=== PATIENT | female | born 1945 | race Caucasian/White ===

== ENCOUNTER 2017-01-09 16:28 | Emergency (ER) | payer OTHER ==
[~2017-01-09] VITALS: Ht 167.6 cm; Wt 57.5 kg
[~2017-01-09 16:28] MED LIST: AMLO5TAB96 PO; ASPI-94 PO; ATOR20TA42 PO; FLUO40CA PO; GABA100C4 PO; HYDR-3580 PO; NITR.4 SL; OMEP20TA OR; OXYB5TAB PO; TRAZ100 PO
[2017-01-09 16:34] VITALS: BP 115/65; PULSE 73; RESP 18; TEMP 98.2; O2SAT 96
[2017-01-09] MEDS ORDERED: TRAZ100T4 PO (16:48)
[2017-01-09] MEDS ORDERED: ASPI81TA11 PO (16:48)
[2017-01-09] MEDS ORDERED: AMLO5TAB2 PO (16:48)
[2017-01-09] MEDS ORDERED: GABA300C5 PO (16:48)
[2017-01-09] MEDS ORDERED: RANI300T PO (16:48)
[2017-01-09] MEDS ORDERED: CLON0.5T PO (16:48)
[2017-01-09] MEDS ORDERED: OXYB5TAB10 PO (16:48)
[2017-01-09] MEDS ORDERED: ATOR20TA15 PO (16:48)
[2017-01-09 16:56] VITALS: O2SAT 96
[2017-01-09] MEDS ORDERED: HYDROmorphone HCL PF 1 MG/ML VIAL IV PUSH ONE (17:00)
[2017-01-09] MEDS ORDERED: SODIUM CHLORIDE 0.9% FLUSH 5 ML FLUSH IVF PRN (17:00)
--- NOTE | 2017-01-09 17:01 | PD ---
HPI Chief Complaint: Pain: Acute or Chronic Time Seen by Provider: 16:49 Travel History International Travel<30 days: No Contact w/Intl Traveler<30days: No Traveled to known affect area: No History of Present Illness HPI 71-year-old female with history of hypertension, hyperlipidemia, fibromyalgia, chronic pain, here for evaluation of left chest wall pain. The patient reports that she has breast implants. She states that she was leaning over her couch yesterday evening when she felt a pop. Since that time she has been having persistent pain in her left chest wall. Pain is sharp, constant, moderate to severe, worse with movement and palpation. She denies dyspnea. No hemoptysis. No history of cardiac disease. She has chronic pain and took 2 of her hydrocodone pills at home today without any relief of symptoms. She is concerned about her breast implants which were placed 30 years ago and have since calcified. PFSH Past Medical History Arthritis: Yes Asthma: No Autoimmune Disease: No Blood Disorders: No Anxiety: Yes Depression: Yes Heart Rhythm Problems: No Cancer: No Cardiovascular Problems: Yes (STATES SHE HAD PREVIOUS ADMISSIONS FOR "HEART") High Cholesterol: Yes Chemotherapy: No Chest Pain: Yes Congestive Heart Failure: No COPD: No Cerebrovascular Accident: No Diabetes: No Diminished Hearing: No Fibromyalgia: Yes Gastrointestinal Disorders: No GERD: Yes Glaucoma: No Headaches: Yes Hepatitis: No Hiatal Hernia: No Hypertension: Yes Kidney Stones: No Musculoskeletal: No Neurologic: No Psychiatric: No Reproductive: No Respiratory: No Immunizations Current: Yes Myocardial Infarction: No Radiation Therapy: No Renal Failure: No Seizures: No Sleep Apnea: No Thyroid Disease: No Ulcer: No Tetanus Vaccination: > 5 Years Influenza Vaccination: Yes PNEUMOCCOCAL Vaccine (Year): NONE ?: Not Menopausal: Yes Past Surgical History AICD: No Gynecologic Surgery: Yes (CERVICAL REPAIR) Pacemaker: No 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)) Social History Alcohol Use: No Tobacco Use: No Substance Use: No Allergies-Medications (Allergen,Severity, Reaction): Coded Allergies: No Known Allergies (Verified , 01/09/17) Reported Meds & Prescriptions Reported Meds & Active Scripts Active Reported Atorvastatin (Atorvastatin Calcium) 20 Mg Tab 20 Mg PO HS Ranitidine (Ranitidine HCl) 300 Mg Tab 300 Mg PO HS Ditropan (Oxybutynin Chloride) 5 Mg Tab 5 Mg PO Q12HR Amlodipine (Amlodipine Besylate) 5 Mg Tab 5 Mg PO DAILY Clonazepam 0.5 Mg Tab 0.5 Mg PO BID Gabapentin 300 Mg Cap 300 Mg PO TID Trazodone (Trazodone HCl) 100 Mg Tab 100 Mg PO HS Review of Systems Except as stated in HPI: all other systems reviewed are Neg Physical Exam Narrative GENERAL: Well-developed, well-nourished, comfortable, no acute distress. SKIN: Warm and dry. No rash. No lacerations, abrasions, or ecchymosis. HEAD: Atraumatic. Normocephalic. EYES: Pupils equal and round. No scleral icterus. No injection or drainage. ENT: Mucous membranes pink and moist. NECK: Trachea midline. No JVD. CARDIOVASCULAR: Regular rate and rhythm. RESPIRATORY: No accessory muscle use. Clear to auscultation. Breath sounds equal bilaterally. GASTROINTESTINAL: Abdomen soft, non-tender, nondistended. MUSCULOSKELETAL: No obvious deformities. No clubbing. No cyanosis. No edema. Left anterior chest wall inferior to the breast there is point tenderness over the fifth and sixth ribs without step-off, without crepitus, without paradoxical chest wall movement. NEUROLOGICAL: Awake and alert. No obvious cranial nerve deficits. Motor grossly within normal limits. Normal speech. PSYCHIATRIC: Appropriate mood and affect; insight and judgment normal. Data Data Last Documented VS Vital Signs Date Time Temp Pulse Resp B/P Pulse Ox O2 Delivery O2 Flow Rate FiO2 01/09/17 16:56 96 Room Air 01/09/17 16:34 98.2 73 18 115/65 Orders Basic Metabolic Panel (Bmp) (01/09/17 16:54) Ckmb (Isoenzyme) Profile (01/09/17 16:54) Complete Blood Count With Diff (01/09/17 16:54) Prothrombin Time / Inr (Pt) (01/09/17 16:54) Act Partial Throm Time (Ptt) (01/09/17 16:54) Troponin I (01/09/17 16:54) Chest, Single Ap (01/09/17 16:54) Ecg Monitoring (01/09/17 16:54) Iv Access Insert/Monitor (01/09/17 16:54) Oximetry (01/09/17 16:54) Sodium Chloride 0.9% Flush (Ns Flush) (01/09/17 17:00) Ct Pulmonary Angiogram (01/09/17 16:54) Hydromorphone Pf Inj (Dilaudid Pf Inj) (01/09/17 17:00) Alcohol (Ethanol) (01/09/17 16:54) Electrocardiogram (01/09/17 16:54) Iohexol 350 Inj (Omnipaque 350 Inj) (01/09/17 18:33) Labs Laboratory Tests Test 01/09/17 17:10 White Blood Count 5.3 TH/MM3 Red Blood Count 3.82 MIL/MM3 Hemoglobin 11.9 GM/DL Hematocrit 36.3 % Mean Corpuscular Volume 94.9 FL Mean Corpuscular Hemoglobin 31.1 PG Mean Corpuscular Hemoglobin 32.7 % Concent Red Cell Distribution Width 12.9 % Platelet Count 174 TH/MM3 Mean Platelet Volume 8.7 FL Neutrophils (%) (Auto) 63.3 % Lymphocytes (%) (Auto) 24.7 % Monocytes (%) (Auto) 9.9 % Eosinophils (%) (Auto) 1.7 % Basophils (%) (Auto) 0.4 % Neutrophils # (Auto) 3.4 TH/MM3 Lymphocytes # (Auto) 1.3 TH/MM3 Monocytes # (Auto) 0.5 TH/MM3 Eosinophils # (Auto) 0.1 TH/MM3 Basophils # (Auto) 0.0 TH/MM3 CBC Comment DIFF FINAL Differential Comment Prothrombin Time 10.7 SEC Prothromb Time International 1.0 RATIO Ratio Activated Partial 26.1 SEC Thromboplast Time Sodium Level 141 MEQ/L Potassium Level 3.7 MEQ/L Chloride Level 107 MEQ/L Carbon Dioxide Level 27.4 MEQ/L Anion Gap 7 MEQ/L Blood Urea Nitrogen 14 MG/DL Creatinine 0.89 MG/DL Estimat Glomerular Filtration 63 ML/MIN Rate Random Glucose 90 MG/DL Calcium Level 8.1 MG/DL Total Creatine Kinase 70 U/L Troponin I LESS THAN 0.02 NG/ML Ethyl Alcohol Level LESS THAN 3 MG/DL MDM Medical Decision Making Medical Screen Exam Complete: Yes Emergency Medical Condition: Yes Medical Record Reviewed: Yes Interpretation(s) EKG: Sinus, rate 56, normal axis, normal intervals, no acute ischemic abnormality, unchanged from prior. Differential Diagnosis Chest wall pain, rib fracture, musculoskeletal strain, pneumothorax, PE, ACS, pericarditis, pneumonia, hemothorax Narrative Course Vital signs show heart rate 73, blood pressure 115/65, pulse ox 96% on room air , oral temp 98.2F. CBC is unremarkable. BMP is unremarkable. Cardiac enzymes are negative. Chest x-ray shows no acute disease. CT pulmonary angiogram: CONCLUSION: 1. Patchy left basilar airspace disease. 2. No evidence for pulmonary embolism. 3. Mild emphysema. The patient has had significant relief with Dilaudid. She still left anterior chest pain that is sharp with movement and deep inspiration. I do not believe the patchy left basilar airspace disease seen on CT scan is indicative of a pneumonia. The patient is afebrile. She has a normal WBC count. She does not have a productive cough. I believe that this is an area of atelectasis secondary to her chest wall pain that she has been experiencing. I did offer to admit the patient for further cardiac evaluation, however the patient does not wish to be admitted at this time. She was admitted to the chest pain center in August 2016, had 3 sets of negative cardiac enzymes, and refused stress testing. Patient's pain is very musculoskeletal. I think that it is very unlikely to be cardiac in nature. I will discharge her home with an incentive spirometer and muscle relaxant. She has pain medication at home. PMD follow-up this week. She was informed on when to return to the emergency department. She verbalizes understanding and agreement with plan. Diagnosis Primary Impression: Chest wall pain Referrals: Primary Care Physician 3 days Additional Instructions: Follow-up with your primary care physician this week. Return to the emergency department for worsening symptoms or any other concerns. Scripts Cyclobenzaprine (Flexeril)10 Mg Tab10 Mg PO TID #20 TAB Ref 0 Prov:Eric Blair MD 01/09/17 Disposition: 01 DISCHARGE HOME Condition: Stable Eric Blair MD Jan 09, 2017 17:01
[2017-01-09 17:20] LABS: AUTOMATED NEUTROPHIL # 3.4 TH/MM3 (1.8-7.7); BASOPHIL % 0.4 % (0.0-2.0); EOSINOPHIL # 0.1 TH/MM3 (0-0.4); EOSINOPHIL % 1.7 % (0.0-4.0); HEMATOCRIT 36.3 % (35.0-46.0); HEMO FLAGS DIFF FINAL; LYMPH % 24.7 % (9.0-44.0); LYMPHOCYTE # 1.3 TH/MM3 (1.0-4.8); MEAN CELL VOLUME 94.9 FL (80.0-100.0); MEAN CORPUSCULAR HEMOGLOBIN 31.1 PG (27.0-34.0); MEAN CORPUSCULAR HGB CONC 32.7 % (32.0-36.0); MONO % 9.9 % (0.0-8.0); NEUT % 63.3 % (16.0-70.0); PLATELET COUNT 174 TH/MM3 (150-450); RED BLOOD COUNT 3.82 MIL/MM3 (4.00-5.30); RED CELL DISTRIBUTION WIDTH 12.9 % (11.6-17.2); WHITE BLOOD COUNT 5.3 TH/MM3 (4.0-11.0)
--- NOTE | 2017-01-09 17:20 | RADHPO ---
EXAM DATE/TIME: 01/09/2017 17:12 [facility] COMPARISON: CHEST SINGLE AP, August 16, 2016, 23:47. INDICATIONS : Left side chest pain after cleaning MEDICAL HISTORY : None. SURGICAL HISTORY : None. ENCOUNTER: Initial ACUITY: 2 days PAIN SCORE: 6/10 LOCATION: Left chest FINDINGS: Calcified breast implants. Cardiomegaly. Aortic calcification. Clear lungs. Osseous structures are in tact. CONCLUSION: No acute disease. Thong Melgoza MD on January 09, 2017 at 17:18 Board Certified Radiologist. This report was verified electronically.
[2017-01-09 17:26] LABS: CHLORIDE 107 MEQ/L (98-107); POTASSIUM 3.7 MEQ/L (3.5-5.1); SODIUM (NA) 141 MEQ/L (136-145)
[2017-01-09 17:29] LABS: ANION GAP 7 MEQ/L (5-15); BICARBONATE 27.4 MEQ/L (21.0-32.0)
[2017-01-09 17:30] LABS: APTT (PATIENT) 26.1 SEC (24.3-30.1); BLOOD UREA NITROGEN 14 MG/DL (7-18); PROTHROMBIN TIME - PATIENT 10.7 SEC (9.8-11.6)
[2017-01-09 17:33] LABS: GLOMERULAR FILTRATION RATE 63 ML/MIN (>89)
[2017-01-09 17:50] LABS: CREATINE KINASE 70 U/L (26-192)
[2017-01-09] MEDS ORDERED: IOHEXOL 350 MG/ML 10 ML VIAL (for RAD DIAG) IV ONE (18:33)
--- NOTE | 2017-01-09 18:39 | RADHPO ---
EXAM DATE/TIME: 01/09/2017 18:07 [facility] COMPARISON: CT PULMONARY ANGIOGRAM, October 17, 2015, 23:01. INDICATIONS : Left sided chest pain. IV CONTRAST: 70 cc Omnipaque 350 (iohexol) IV RADIATION DOSE: 6.22 CTDIvol (mGy) MEDICAL HISTORY : Hypertension. SURGICAL HISTORY : None. ENCOUNTER: Initial ACUITY: 1 day PAIN SCALE: 4/10 LOCATION: chest TECHNIQUE: Volumetric scanning of the chest was performed using a pulmonary embolism protocol MIP images were re constructed. Using automated exposure control and adjustment of the mA and/or kV according to patien t size, radiation dose was kept as low as reasonably achievable to obtain optimal diagnostic quality images. FINDINGS: Mild emphysematous changes are noted bilaterally with dependent atelectatic changes noted at the base s there are basilar airspace disease noted. There is mild bronchiectasis in the lower lobes. Densely calcified breast implants are noted bilaterally. There is no evidence for pulmonary embolism. Calcifi ed subcentimeter right hilar lymph node, calcified splenic and hepatic granulomas. There is a calcifi ed granuloma in the right middle lobe lateral segment. CONCLUSION: 1. Patchy left basilar airspace disease. 2. No evidence for pulmonary embolism. 3. Mild emphysema. Thong Melgoza MD on January 09, 2017 at 18:36 Board Certified Radiologist. This report was verified electronically.
[2017-01-09] MEDS ORDERED: CYCL1TAB29 PO (18:56)
[2017-01-09 19:17] VITALS: BP 120/70; PULSE 74; RESP 18; O2SAT 98
--- NOTE | 2017-01-10 10:17 | EKG ---
Date Performed: 01/09/2017 Time Performed: 17:01:48 PTAGE: 71 years EKG: Sinus bradycardia Normal ECG except for rate Compared to prior tracing no significant catherine xie PREVIOUS TRACING : 08/17/2016 05.20 DOCTOR: Renato Moses Interpretating Date/Time 01/10/2017 10:15:50
== END 2017-01-09 19:18 | disposition home or self-care (01) ==
LOC: PHED 16:28
DX: R07.89 Other chest pain (principal); G89.29 Other chronic pain; I10 Essential (primary) hypertension; E78.00 Pure hypercholesterolemia, unspecified
CPT/HCPCS: 71010; 71275; 80048; 80320; 82550; 84484; 85025; 85610; 85730; 93005; 94150; 96374; 99284; J1170; Q9967